=== PATIENT | male | born 1970 | race Caucasian/White ===

== ENCOUNTER → 2017-11-10 | Outpatient (CLI) | payer OTHER ==
[~2017-11-10] MED LIST: None at this Time
[2017-11-10 09:57] LABS: HEMATOCRIT 44.7 % (39.2-51.8); HEMOGLOBIN 15.1 g/dL (13.7-18.0); WHITE BLOOD COUNT 9.7 x10^3/uL (3.4-10)
== END | disposition home or self-care (01) ==
LOC: STAR 09:20
PROVIDERS: ATTEND Orthopaedic Surgery Orthopaedic Surgery of the Spine
DX: Z01.818 Encounter for other preprocedural examination (principal); M50.023 Cervical disc disorder at C6-C7 level with myelopathy
CPT/HCPCS: 36415; 85025

== ENCOUNTER 2017-11-15 08:57 | Inpatient (IN) | payer OTHER ==
[~2017-11-15] VITALS: Ht 185.4 cm; Wt 101.3 kg
[~2017-11-15 08:57] MED LIST changes: +BACITRACIN 50,000 UNIT ONE; +BUPIVACAINE/PF 0.25% ONE; +BUPIVACAINE/PF 0.5% ONE; +EPINEPHRINE 1 MG/ML, 1ML ONE; +THROMBIN 5,000 UNIT VIAL TP ONE
[2017-11-15] MEDS ORDERED: LIDOCAINE 1%, 2ML ONE (09:15)
[2017-11-15] MEDS ORDERED: LACTATED RINGERS 1,000 ML IV SCH (09:20)
[2017-11-15 09:23] VITALS: BP 164/104
[2017-11-15] MEDS ORDERED: OXYC10TA6 PO (09:23)
[2017-11-15] MEDS ORDERED: LIDOCAINE 1%, 2ML SQ PRN (10:00)
[2017-11-15] MEDS ORDERED: PROPOFOL 10 MG/ML, 50ML ONE (10:36)
[2017-11-15] MEDS ORDERED: EPHEDRINE 50 MG/ML, 1ML ONE (10:36)
[2017-11-15] MEDS ORDERED: PHENYLEPHRINE 10 MG/ML ONE (10:36)
[2017-11-15] MEDS ORDERED: PROPOFOL 10 MG/ML, 20ML ONE (10:36)
[2017-11-15] MEDS ORDERED: FENTANYL PF 100 MCG/2ML ONE (10:38)
[2017-11-15] MEDS ORDERED: MIDAZOLAM 1 MG/ML, 2ML ONE ×2 (10:48)
[2017-11-15] MEDS ORDERED: REMIFENTANIL 2 MG ONE (11:07)
[2017-11-15] MEDS ORDERED: METOCLOPRAMIDE 5 MG/ML, 2ML IV PRN (11:30)
[2017-11-15] MEDS ORDERED: MEPERIDINE/PF 25MG/0.5ML IVPush PRN (11:30)
[2017-11-15] MEDS ORDERED: MIDAZOLAM 1 MG/ML, 2ML IV PRN (11:30)
[2017-11-15] MEDS ORDERED: hydrALAzine 20 MG/ML, 1ML IV PRN (11:30)
[2017-11-15] MEDS ORDERED: OXYcodone 5 MG/5 ML ORAL.SOL UDC PO PRN (11:30)
[2017-11-15] MEDS ORDERED: LABETALOL 5MG/ML, 20ML IV PRN ×2 (11:30→16:00)
[2017-11-15] MEDS ORDERED: EPHEDRINE 50 MG/ML, 1ML IVPush PRN (11:30)
[2017-11-15] MEDS ORDERED: FENTANYL PF 100 MCG/2ML IV PRN (11:30)
[2017-11-15] MEDS ORDERED: ALBUTEROL SULFATE 2.5 MG/3 ML NPPB PRN (11:30)
[2017-11-15] MEDS ORDERED: HYDROmorphone 1 MG/ML, 1ML IV PRN (11:30)
[2017-11-15] MEDS ORDERED: ONDANSETRON 2MG/ML, 2ML IVPush PRN (11:30)
[2017-11-15] MEDS ORDERED: DEXAMETHASONE 4 MG/ML, 1ML ONE (12:29)
[2017-11-15] MEDS ORDERED: CEFAZOLIN 1,000 MG ONE (12:29)
[2017-11-15] MEDS ORDERED: HYDROmorphone 2 MG/ML, 1ML ONE (12:29)
[2017-11-15] MEDS ORDERED: ONDANSETRON 2MG/ML, 2ML ONE (12:29)
[2017-11-15] MEDS ORDERED: LIDOCAINE-MPF 2% ,5ML ONE (12:29)
[2017-11-15] MEDS ORDERED: LIDOCAINE GEL 2%, 5ML ONE (12:29)
[2017-11-15] MEDS ORDERED: ACETAMINOPHEN 325 MG TABLET ONE (13:43)
[2017-11-15] MEDS ORDERED: OXYcodone 5 MG/5 ML ORAL.SOL UDC ONE (13:43)
[2017-11-15] MEDS ORDERED: ACETAMINOPHEN 650 MG/20.3 ML UDC ONE (13:43)
[2017-11-15] MEDS ORDERED: HYDROmorphone PCA 30 MG/30 ML ONE (13:55)
[2017-11-15] MEDS ORDERED: HYDROmorphone PCA 30 MG/30 ML IV PRN (14:00)
[2017-11-15] MEDS ORDERED: ACETAMINOPHEN 325 MG TABLET PO PRN (14:00)
[2017-11-15] MEDS ORDERED: DIAZEPAM 5 MG/ML, 2ML IVPush PRN (14:00)
[2017-11-15] MEDS ORDERED: DIPHENHYDRAMINE 50 MG CAPSULE PO PRN (16:00)
[2017-11-15] MEDS ORDERED: DIPHENHYDRAMINE 50 MG/ML, 1ML IM PRN (16:00)
[2017-11-15] MEDS ORDERED: HYDROmorphone 2 MG/ML, 1ML IM PRN (16:00)
[2017-11-15] MEDS ORDERED: PROMETHAZINE 25 MG/ML, 1ML IM PRN (16:00)
[2017-11-15] MEDS ORDERED: MAGNESIUM HYDROXIDE 8%, 30ML UDC PO PRN (16:00)
[2017-11-15] MEDS ORDERED: DIPHENHYDRAMINE 50 MG/ML, 1ML IVPush PRN (16:00)
[2017-11-15] MEDS ORDERED: BISACODYL 10 MG SUPP PR PRN (16:00)
[2017-11-15] MEDS ORDERED: CYCLOBENZAPRINE 10 MG TABLET PO PRN (16:00)
[2017-11-15] MEDS ORDERED: NICOTINE 14MG/24 HR PATCH.TD24 TD PRN (16:00)
[2017-11-15] MEDS ORDERED: OXYcodone IR 5MG TABLET PO PRN (16:00)
[2017-11-15] MEDS: D5%-0.9% NACL+KCL 20MEQ 1,000 ML IV SCH ×2 (17:14→21:43)
[2017-11-15] MEDS: DEXAMETHASONE 4 MG/ML, 1ML IV SCH ×2 (17:15→21:23)
[2017-11-15 19:10] VITALS: BP 130/83
[2017-11-15] MEDS: CEFAZOLIN PMX 1GM/50ML 50 ML IVPB SCH (21:22)
[2017-11-15] MEDS: ACETAMINOPHEN 500 MG TABLET PO SCH (21:23)
[2017-11-16 00:10] VITALS: BP 116/79
[2017-11-16] MEDS: DEXAMETHASONE 4 MG/ML, 1ML IV SCH (04:40)
[2017-11-16] MEDS: CEFAZOLIN PMX 1GM/50ML 50 ML IVPB SCH ×2 (04:40→13:30)
[2017-11-16] MEDS: OXYcodone IR 5MG TABLET PO PRN ×4 (04:40→12:23)
[2017-11-16 04:50] VITALS: BP 137/88
[2017-11-16] MEDS: D5%-0.9% NACL+KCL 20MEQ 1,000 ML IV SCH (06:29)
[2017-11-16 07:56] VITALS: BP 133/77
[2017-11-16] MEDS: ACETAMINOPHEN 500 MG TABLET PO SCH (08:39)
[2017-11-16] MEDS ORDERED: SENNA/DOCUSATE TABLET PO SCH (09:00)
[2017-11-16 12:49] VITALS: BP 138/84
== END 2017-11-16 14:13 | disposition home or self-care (01) | DRG 473 ==
LOC: ORIP 08:57 → 4NOR 15:32 → DCLOUNGE 11-16 14:00
PROVIDERS: ADMIT Orthopaedic Surgery Orthopaedic Surgery of the Spine; ATTEND Orthopaedic Surgery Orthopaedic Surgery of the Spine
PROC: 01N10ZZ Release Cervical Nerve, Open Approach (ICD-10-PCS; 2017-11-15)
PROC: 0RB30ZZ Excision of Cervical Vertebral Disc, Open Approach (ICD-10-PCS; 2017-11-15)
PROC: 4A11X4G Monitoring of Peripheral Nervous Electrical Activity, Intraoperative, External Approach (ICD-10-PCS; 2017-11-15)
PROC: 0RG20A0 Fusion of 2 or more Cervical Vertebral Joints with Interbody Fusion Device, Anterior Approach, Anterior Column, Open Approach (ICD-10-PCS; principal; 2017-11-15 11:00)
DX: M47.22 Other spondylosis with radiculopathy, cervical region (principal); M50.20 Other cervical disc displacement, unspecified cervical region; M25.78 Osteophyte, vertebrae
CPT/HCPCS: 36415; 72040; 86850; 86900; C1713; J0171; J0690; J1100; J1170; J2250; J2405; J2704; J3010; J3360; J3490; C1762; J1200; J2370; J3480; J7120